=== PATIENT | male | born 1985 | race Caucasian/White ===

== ENCOUNTER 2016-04-23 20:04 | Inpatient (IN) | payer BC, OTHER ==
[~2016-04-23] VITALS: Ht 188 cm; Wt 99.8 kg
[2016-06-16 02:30] VITALS: BP 112/71
[2016-06-16] MEDS ORDERED: GABA600T2 PO (03:07)
[2016-06-16] MEDS ORDERED: MIRT30TA7 PO (03:07)
[2016-06-16] MEDS ORDERED: OLAN5TAB3 PO ×2 (03:07→06:10)
[2016-06-16] MEDS ORDERED: BUPR8TAB4 SL (03:07)
[2016-06-16] MEDS ORDERED: CLON0.2T PO (03:07)
[2016-06-16] MEDS ORDERED: MIRT15TA7 PO (03:07)
[2016-06-16] MEDS ORDERED: IBUPROFEN 400 MG TABLET PO PRN (03:45)
[2016-06-16] MEDS ORDERED: DICYCLOMINE HCL 20 MG TABLET PO PRN (03:45)
[2016-06-16] MEDS ORDERED: METHOCARBAMOL 750 MG TABLET PO PRN (03:45)
[2016-06-16] MEDS ORDERED: BUPRENORPHINE HCL 2 MG TAB.SUBL SL PRN ×2 (03:45→15:00)
[2016-06-16] MEDS ORDERED: HYDROXYZINE PAMOATE 25 MG CAPSULE PO PRN (03:45)
[2016-06-16] MEDS ORDERED: CLONIDINE HCL 0.1 MG TABLET PO PRN (03:45)
[2016-06-16] MEDS ORDERED: LORAZEPAM 2 MG/1 ML VIAL IM PRN (03:45)
[2016-06-16] MEDS ORDERED: MAG HYDROX/AL HYDROX/SIMETH 30 ML LIQUID UDC PO PRN (03:45)
[2016-06-16] MEDS ORDERED: ONDANSETRON ODT 4 MG TAB.RAPDIS SL PRN (03:45)
[2016-06-16] MEDS ORDERED: MAGNESIUM HYDROXIDE 30 ML LIQUID UDC PO PRN (03:45)
[2016-06-16] MEDS ORDERED: DIAZEPAM 5 MG TABLET PO PRN ×2 (03:45→15:00)
[2016-06-16] MEDS ORDERED: DIAZEPAM 10 MG TABLET PO PRN ×4 (03:45→15:00)
[2016-06-16] MEDS ORDERED: LOPERAMIDE HCL 2 MG CAPSULE PO PRN ×2 (03:45)
[2016-06-16] MEDS ORDERED: diphenhydrAMINE 50 MG CAPSULE PO PRN (03:45)
[2016-06-16] MEDS ORDERED: ACETAMINOPHEN 325 MG TABLET PO PRN (03:45)
[2016-06-16 04:00] LABS: *AMPHETAMINE, URINE POSITIVE (NEGATIVE); *BARBITURATE, URINE NEGATIVE (NEGATIVE); *CANNABINOID, URINE NEGATIVE (NEGATIVE); *COCCAINE, URINE NEGATIVE (NEGATIVE); *OPIATE, URINE POSITIVE (NEGATIVE); *PHENCYCLIDINE SCREEN,URINE NEGATIVE (NEGATIVE)
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
[2016-06-16 04:45] VITALS: BP 121/71
--- NOTE | 2016-06-16 04:55 | NUR ---
PRN Zofran administration Pt c/o nausea without vomiting. PRN Zofran administered.
[2016-06-16] MEDS ORDERED: ONDANSETRON ODT 4 MG TAB.RAPDIS ONE (05:00)
--- NOTE | 2016-06-16 05:25 | NUR ---
PRN Zofran reassessment PRN Zofran effective. Pt reports relief of nausea.
[2016-06-16 08:00] VITALS: BP 108/66
[2016-06-16 08:11] LABS: BASOPHILS % (AUTO) 0.4 % (0.0-2.0); EOSINOPHILS # (AUTO) 0.3 K/uL (0.0-0.7); HEMATOCRIT 37.7 % (36.7-47.1); HEMOGLOBIN 13.2 g/dL (12.5-16.3); LYMPHOCYTES # (AUTO) 1.6 K/uL (20.0-40.0); LYMPHOCYTES % (AUTO) 19.5 % (20.5-51.5); MEAN CORPUSCULAR HEMOGLOBIN 31.7 uug (23.8-33.4); MEAN CORPUSCULAR HGB CONC 35 g/dL (32.5-36.3); MEAN CORPUSCULAR VOLUME 90.3 fL (73.0-96.2); MONOCYTES # (AUTO) 0.5 K/uL (2.0-10.0); MONOCYTES % (AUTO) 5.5 % (0.0-11.0); NEUTROPHILS % (AUTO) 70.6 % (38.5-71.5); PLATELET COUNT (AUTO) 225 K/uL (152-348); RED BLOOD CELL COUNT(AUTO) 4.17 MIL/uL (4.06-5.63); RED CELL DISTRIBUTION WIDTH 13.6 % (12.1-16.2); WHITE BLOOD COUNT (AUTO) 8.4 K/uL (3.6-10.2)
[2016-06-16 08:15] LABS: ETHANOL < 3 MG/DL (0-0)
[2016-06-16 08:21] LABS: ALANINE AMINOTRANSFERASE 20 U/L (16-63); ALKALINE PHOSPHATASE 117 U/L (50-136); AMYLASE 27 U/L (25-115); ASPARTATE AMINOTRANSFERASE 27 U/L (15-37); BILIRUBIN,TOTAL 0.7 mg/dL (0.2-1.0); CALCIUM 8.5 mg/dL (8.5-10.1); CARBON DIOXIDE 32 mmol/L (21-32); CHLORIDE 105 mmol/L (98-107); GFR 88 mL/min (>60); GLUCOSE 108 mg/dL (74-106); LIPASE 63 U/L (73-393); MAGNESIUM 2.2 mg/dL (1.8-2.4); POTASSIUM 3.6 mmol/L (3.5-5.1); SODIUM SERUM 142 mmol/L (136-145); TOTAL PROTEIN, SERUM 6.6 g/dL (6.4-8.2); UREA NITROGEN, BLOOD 17 mg/dL (7-18)
[2016-06-16 08:25] LABS: HIV-1 p24 ANTIGEN NON REACTIVE (NONREACTIVE); HIV-1/2 ANTIBODY NON REACTIVE (NONREACTIVE)
[2016-06-16] MEDS ORDERED: MULTIVITAMINS,THERAPEUTIC TABLET PO SCH (09:00)
--- NOTE | 2016-06-16 09:30 | NUR ---
END OF SHIFT Report provided to day shift nurse. Pt is lying in bed resting. He is a 30 yo male admitted to [facility] at 0210 for Opiate and BZD Dependence. He is A&O x4 and ambulatory. NKA, full code, regular diet. Pt was mildly intoxicated on admission. PRN Zofran administered and effective. Last COWS 3 and CIWA 2. He drank 1200mL and slept for 2 hours.
--- NOTE | 2016-06-16 09:31 | NUR ---
START OF SHIFT] Received report from assembler 1st shift nurse. 30 year old male patient admitted on 06/16/16 for opiate, benzo and methamphetamine use. Pt is on PRN medications for now. Taper has not yet been initiated. Pt is A/O x4. PRN Zofran administered at night and effective.V/S remain WNL. Most recent COWS 3 and CIWA 2. Pt has multiple scabs and abrasions, and swelling on bilateral thighs due to IM injection. Pt presents with bilateral edema +1. Pt is resting in bed at this time, sleeping. RR even and unlabored. Safety precautions are in place. Will continue to monitor.
[2016-06-16] MEDS ORDERED: SERTRALINE HCL 100 MG TABLET PO SCH (11:45)
--- NOTE | 2016-06-16 12:07 | NUR ---
ASSUMED CARE assumed care from primary nurse, all pertinent information discussed. patient received awake, alert and oriented x4, will continue to monitor closely. safety measures in place.
[2016-06-16 13:34] VITALS: BP 112/68
--- NOTE | 2016-06-16 14:45 | NUR ---
MD COMMUNICATION Per Md patient to begin antibiotic therapy vancomycin IV for cellulitis of bilateral legs. Patients IV saline lock inserted by ER staff nurse to left inner wrist area, procedure well tolerated. Procedure explained prior to insertion. Saline lock noted patent and intact, no s/sx of infiltration. director staffing to administer IV ATB as ordered. As per Md orders patient to be started on a Valium and Subutex taper, as ordered, will monitor closely during shift. will continue to monitor vital signs and cow/ciwa scores. Patient was also placed on a 1:1 sitter for fall and safety precautions. will continue to monitor closely.
[2016-06-16] MEDS ORDERED: MIRALAX 17 GM POWD.PACK PO PRN (15:00)
[2016-06-16] MEDS ORDERED: IBUPROFEN 600 MG TABLET PO PRN (15:00)
--- NOTE | 2016-06-16 15:16 | NUR ---
Clinical Pharmacy Note: Vancomycin Dosing per Pharmacy Subjective: Vancomycin IV to start on this 30 yo male patient for cellulitis Objective: BUN 17/Scr 1.0 WBC 8.4 Temperature 98.3 wt 220 lb ht 6' 2'' Assessment/Plan: Will start vancomycin 1500mg IVPB Q9hr for a predicted vancomycin steady state trough level of 15 mcg/ml. Will draw a vancomycin trough level prior to the 4th dose of vancomycin (not ordered yet). Will monitor renal function and adjust vancomycin dose, if needed, should renal function change significantly. Will follow daily.
[2016-06-16 16:30] VITALS: BP 112/68
[2016-06-16] MEDS ORDERED: DIAZEPAM 10 MG TABLET PO SCH (17:00)
[2016-06-16] MEDS ORDERED: VANCOMYCIN IV 1,500 MG in IV DEXTROSE 5% 500 ML IV SCH (17:00)
--- NOTE | 2016-06-16 17:18 | NUR ---
AMA Patient stated that he wants to leave AMA. Patient educated about the risk and consequences of leaving AMA, patient verbalized understanding, but still requested to leave. Multiple staff members spoke with patient without any success. VS are WNL, patient denies any suicidal/homicidal ideations, skin intact, with redness to bilateral upper thighs, per MD cellulitis to BLE. Dr. law notified, and spoke with patient. Patient was given a list of community resources in case he is in need of help. all belonging returned to patient, home medications were also returned. Patient left the facility at 1718.
[2016-06-16] MEDS ORDERED: GABAPENTIN 300 MG CAPSULE PO SCH (21:00)
[2016-06-16] MEDS ORDERED: OLANZAPINE 5 MG TABLET PO SCH (21:00)
[2016-06-17 08:09] LABS: HEPATITIS B CORE AB, IgM Negative (Negative); HEPATITIS B SURFACE AG Negative (Negative)
[2016-06-17] MEDS ORDERED: TUBERCULIN,PURIF.PROT.DERIV. 5 TU/0.1 ML TEST ID ONE (09:00)
[2016-06-17] MEDS ORDERED: DIAZEPAM 10 MG TABLET PO SCH (09:00)
[2016-06-18] MEDS ORDERED: DIAZEPAM 10 MG TABLET PO SCH (09:00)
[2016-06-19] MEDS ORDERED: DIAZEPAM 10 MG TABLET PO SCH (09:00)
[2016-06-19] MEDS ORDERED: DIAZEPAM 5 MG TABLET PO SCH (09:00)
[2016-06-20] MEDS ORDERED: DIAZEPAM 5 MG TABLET PO SCH (09:00)
[2016-06-21] MEDS ORDERED: DIAZEPAM 5 MG TABLET PO SCH (09:00)
[2016-06-22] MEDS ORDERED: DIAZEPAM 5 MG TABLET PO SCH (09:00)
== END 2016-06-16 15:18 | disposition left against medical advice (07) | DRG 894 ==
LOC: SRC 06-16 01:23
PROVIDERS: ADMIT Internal Medicine; ATTEND Internal Medicine
PROC: HZ2ZZZZ Detoxification Services for Substance Abuse Treatment (ICD-10-PCS; principal; 2016-06-16)
DX: F11.229 Opioid dependence with intoxication, unspecified (principal); L03.115 Cellulitis of right lower limb; F13.229 Sedative, hypnotic or anxiolytic dependence with intoxication, unspecified; F40.01 Agoraphobia with panic disorder; F17.210 Nicotine dependence, cigarettes, uncomplicated; Z59.0 Homelessness; S71.131S Puncture wound without foreign body, right thigh, sequela; X78.8XXS Intentional self-harm by other sharp object, sequela; Z82.49 Family history of ischemic heart disease and other diseases of the circulatory system; Z81.8 Family history of other mental and behavioral disorders; Z59.1 Inadequate housing; F15.10 Other stimulant abuse, uncomplicated; F32.9 Major depressive disorder, single episode, unspecified; R26.81 Unsteadiness on feet
CPT/HCPCS: 36415; 80307; 80324; 80346; 80361; 83690; 83735; 84443; 85025; 86705; 87340; 87806; G6040-TC; J3370; J7060; Q0162

== ENCOUNTER 2016-07-09 21:16 | Inpatient (IN) | payer BC, OTHER ==
[~2016-07-09] VITALS: Ht 188 cm; Wt 97.5 kg
--- NOTE | 2016-07-10 08:00 | NUR ---
PRE-ADMISSION Pre admission completed at intake office at 0730 patient was discharged from [facility] at approximately 0700, patient arrived to [facility] on 07/10/2016 and was taken to [facility] ER at 0103, as per ER nurse report patient had with him an empty bottle of "Xanax" and "empty syringes" As per nursing ER report patient refused Narcan. Patient was discharged from ER and taken to [facility], upon assessing patient, patient noted alert and oriented x4, verbally responsive. Patients bp: 124/73 heart rate: 85, t: 97.8 r: 16 o2 sat: 99% room air. Patient denies any pain/discomfort. Patient reports he is 6 feet 2 inches and weighs 215 lbs. Denies any allergies to food or drugs. Patient denies any history of seizures.
[2016-07-10] MEDS ORDERED: IBUP-1482 PO (08:30)
[2016-07-10] MEDS ORDERED: OLAN5TAB30 PO (08:30)
[2016-07-10] MEDS ORDERED: SERT100T12 PO (08:30)
[2016-07-10] MEDS ORDERED: ONDA-25 PO (08:30)
[2016-07-10] MEDS ORDERED: CLON0.1T PO (08:30)
[2016-07-10] MEDS ORDERED: HYDR50CA5 PO (08:30)
[2016-07-10] MEDS ORDERED: METH-406 PO (08:30)
[2016-07-10] MEDS ORDERED: GABA600T2 PO (08:30)
[2016-07-10] MEDS ORDERED: MIRT45TA5 PO (08:30)
[2016-07-10 08:42] VITALS: BP 124/73
[2016-07-10] MEDS ORDERED: MIRALAX 17 GM POWD.PACK PO PRN (09:00)
[2016-07-10] MEDS ORDERED: ACETAMINOPHEN 325 MG TABLET PO PRN (09:00)
[2016-07-10] MEDS ORDERED: HYDROXYZINE PAMOATE 25 MG CAPSULE PO PRN (09:00)
[2016-07-10] MEDS ORDERED: LOPERAMIDE HCL 2 MG CAPSULE PO PRN ×2 (09:00)
[2016-07-10] MEDS ORDERED: MAG HYDROX/AL HYDROX/SIMETH 30 ML LIQUID UDC PO PRN (09:00)
[2016-07-10] MEDS ORDERED: BUPRENORPHINE HCL 2 MG TAB.SUBL SL PRN (09:00)
[2016-07-10] MEDS ORDERED: METHOCARBAMOL 750 MG TABLET PO PRN (09:00)
[2016-07-10] MEDS ORDERED: diphenhydrAMINE 50 MG CAPSULE PO PRN (09:00)
[2016-07-10] MEDS ORDERED: DICYCLOMINE HCL 20 MG TABLET PO PRN (09:00)
[2016-07-10] MEDS: MULTIVITAMINS,THERAPEUTIC TABLET PO SCH (09:00)
[2016-07-10] MEDS ORDERED: IBUPROFEN 600 MG TABLET PO PRN (09:00)
[2016-07-10] MEDS ORDERED: ONDANSETRON ODT 4 MG TAB.RAPDIS SL PRN (09:00)
[2016-07-10] MEDS ORDERED: ONDANSETRON 4 MG/2 ML VIAL IM PRN (09:00)
[2016-07-10] MEDS ORDERED: MAGNESIUM HYDROXIDE 30 ML LIQUID UDC PO PRN (09:00)
[2016-07-10] MEDS ORDERED: CLONIDINE HCL 0.1 MG TABLET PO PRN (09:00)
--- NOTE | 2016-07-10 10:10 | NUR ---
ADMISSION Admitted a 30 year old male from [place], [facility] patient reports feeling very sleepy. Patients vitals were obtained at intake office and were WNL. Patient with NKA. Brought home medications, all medications were input into [facility]. Patient reports he is currently homeless but rents out a "place" from "[employer]" Patient reports substance use of: 1. heroin- began using at age 17, reports for the past two years on/off has been using 2-5 grams of heroin IM, daily reports he last used 07/09/2016 at 2000 1gram. 2. Xanax- began using at the age of 17, reports for the past two years on/off has been using 20-30mg daily, reports he last used 07/09/2016 at 0800 6mg. Patient reports he has been to 50 treatment centers in the past but cannot recall them all, reports most recently has been to: 1. [facility] 1.5 months ago, left AMA after 12 hours of being here. 2. [facility] in [place] for one week 2 months ago, 3. [facility] in [facility] for 17 days 3 months ago, 4. [facility] in [place] for one week 3 months ago. Patient reports he has been diagnosed with panic d/o at the age of 27, anxiety and depression Dx: at tech age of 13. reports his primary care physician is Dr. Penny located in [facility]. denies any history of seizures. denies any family history of substance abuse. Patient reports he was hospitalized 3 weeks ago for heroin overdose at [facility]. Patient currently awake, and alert and oriented x4, pupils are equal and reactive to light, 2mm. Patients abdomen is soft and non distended. no N/V/D noted. Patients lungs clear upon auscultation. patient body assessment completed skin is intact, no bruising discoloration or breakdown noted. Patients body search completed by male intake on contraband found. Patient currently c/o chill, mild heedfulness and mild anxiety with cow score of: 3 and ciwa score of: 3. Dr. Peace notified of admission, report given to MD, per Dr. Peace he will assess patient. Psychiatrist notified of new admission. patient educated regarding call light use with good verbal understanding. oriented to unit. safety measures in place. call light kept with in reach, will continue to monitor.
[2016-07-10 11:15] LABS: BASOPHILS % (AUTO) 0.5 % (0.0-2.0); EOSINOPHILS # (AUTO) 0.4 K/uL (0.0-0.7); EOSINOPHILS % (AUTO) 5.7 % (0.0-7.0); HEMATOCRIT 41.5 % (40-50); HEMOGLOBIN 14.2 G/DL (14.0-18.0); LYMPHOCYTES # (AUTO) 1.8 K/UL (0.8-4.8); LYMPHOCYTES % (AUTO) 26.6 % (20.5-51.5); MEAN CORPUSCULAR HEMOGLOBIN 30.6 UUG (27.0-31.0); MEAN CORPUSCULAR HGB CONC 34 g/dL (32.0-37.0); MEAN CORPUSCULAR VOLUME 89.7 FL (82.0-92.0); MONOCYTES # (AUTO) 0.3 K/UL (0.1-1.30); MONOCYTES % (AUTO) 4.8 % (0.0-11.0); NEUTROPHILS # (AUTO) 4.3 K/UL (1.8-8.9); NEUTROPHILS % (AUTO) 62.4 % (38.5-71.5); PLATELET COUNT (AUTO) 204 K/UL (150-450); RED BLOOD CELL COUNT(AUTO) 4.62 MIL/UL (4.7-6.1); RED CELL DISTRIBUTION WIDTH 13.8 % (11.5-14.5); WHITE BLOOD COUNT (AUTO) 6.8 K/UL (4.0-11.2)
[2016-07-10 11:21] LABS: ETHANOL < 3 MG/DL (0-0)
[2016-07-10 11:40] LABS: ALANINE AMINOTRANSFERASE 25 U/L (16-63); ALBUMIN 3.4 g/dL (3.4-5.0); ALKALINE PHOSPHATASE 140 U/L (50-136); ASPARTATE AMINOTRANSFERASE 29 U/L (15-37); BILIRUBIN,TOTAL 0.3 mg/dL (0.2-1.0); CALCIUM 8.6 mg/dL (8.5-10.1); CARBON DIOXIDE 31 mmol/L (21-32); CHLORIDE 106 mmol/L (98-107); CREATININE 0.9 mg/dL (0.6-1.3); GFR 99 mL/min (>60); GLUCOSE 120 mg/dL (74-106); MAGNESIUM 2.2 mg/dL (1.8-2.4); POTASSIUM 4.1 mmol/L (3.5-5.1); SODIUM SERUM 143 mmol/L (136-145); TOTAL PROTEIN, SERUM 6.8 g/dL (6.4-8.2); UREA NITROGEN, BLOOD 12 mg/dL (7-18)
[2016-07-10 11:46] LABS: THYROID STIMULATING HORMONE 1.107 mIU/mL (0.358-3.740)
[2016-07-10 12:01] LABS: HIV-1 p24 ANTIGEN NON REACTIVE (NONREACTIVE); HIV-1/2 ANTIBODY NON REACTIVE (NONREACTIVE)
[2016-07-10] MEDS ORDERED: LORAZEPAM 2 MG/1 ML VIAL IM PRN (12:30)
[2016-07-10] MEDS ORDERED: DIAZEPAM 5 MG TABLET PO PRN (12:30)
[2016-07-10] MEDS ORDERED: BACLOFEN 20 MG TABLET PO PRN (12:30)
[2016-07-10] MEDS ORDERED: DIAZEPAM 10 MG TABLET PO PRN ×2 (12:30)
--- NOTE | 2016-07-10 12:47 | NUR ---
UDS Patients admitting urine drug screen collected on 07/10/2016 at 0830 results under ER record for patient, results were printed and placed in chart. MD notified of results. As per results patient positive for opiate/benzodiazepines and barbiturates. Per patient reported that "4-5 days ago" he did not have any Xanax and he took "two-30mg phenobarbital tablets" MD notified.
[2016-07-10] MEDS: DIAZEPAM 10 MG TABLET PO SCH ×3 (13:12→21:19)
[2016-07-10 13:38] VITALS: BP 103/63
[2016-07-10] MEDS: GABAPENTIN 300 MG CAPSULE PO SCH ×2 (14:14→21:19)
[2016-07-10 16:55] VITALS: BP 112/73
--- NOTE | 2016-07-10 18:57 | NUR ---
END OF SHIFT Patient alert and oriented x4, vital signs stable during shift. Patient was started on a modified 5 day Valium taper and 5 day Subutex taper (to start tomorrow) as per Dr. law and continues under close observation for s/sx of withdrawal. 1300 assessment patient presented with: heart rate of 86, mild head fullness, barely sweating and moderate anxiety with cow score of: 4 and ciwa score of: 7. 1700 assessment patient presented with: c/o chills, anxiety and barely sweating with cow score of: 3, and ciwa score of: 5. Patient encouraged adequate PO fluid intake as tolerated. Encouraged to attend group therapies/sessions to learn new coping skills to prevent relapse, denies any SI/HI. Safety measures in place. call light kept with in reach. all needs met and rendered. patient endorsed to cage shift manager nurse, all pertinent information discussed.
[2016-07-10 20:00] VITALS: BP 119/76
--- NOTE | 2016-07-10 20:02 | NUR ---
START OF SHIFT NOTE Pt is a 30 y/o male admitted for Heroin and Xanax dependence and use. Pt has NKA but reported a PMH of panic disorder, anxiety, and depression. Per day shift nurse pt was placed on a 5 day Valium taper and a 5 day Subutex taper(Subutex taper is scheduled to start tomorrow) Pt is tolerating medications well with no s/e or a/r reported. Pt didn't receive any PRNS during the day shift. Last COW: 3 and CIWA: 5 (1600). At this time pt is in his room eating some cereal. Pt stated " I'm doing alright." Pt denies any pain/discomfort at this time. Pt is encouraged to notify staff of any changes in condition or of any concerns. Pt verbalized an understanding. All safety measures in place; side rails up x 2, bed locked and in low position, and call light with reach. Will continue to monitor.
--- NOTE | 2016-07-11 | NUR ---
DANNA, ISAAC, AND VITALS REFUSED Pt refused to be assessed and have vitals taken at this time. Pt was encouraged x 3 with risks and benefits explained, but the pt still refused. Will continue to monitor. Addendum: 07/11/16 at 0628 by CRISTOBAL KRAMER LVN Amended: Links added.
[2016-07-11 04:00] VITALS: BP 113/68
--- NOTE | 2016-07-11 07:50 | NUR ---
END OF SHIFT NOTE Pt is a 30 y/o male admitted for Heroin and Xanax dependence and use. Pt has NKA but reported a PMH of panic disorder, anxiety, and depression. Pt was continues on a 5 day Valium taper and a 5 day Subutex taper(Subutex taper is scheduled to start today) Pt is tolerating medications well with no s/e or a/r reported. Pt didn't receive any PRNS during the shift. Last COW: 1 and CIWA: 0 (0400). Pt slept for a total of 10 hours. All safety measures in place; side rails up x 2, bed locked and in low position, and call light with reach. Endorsed to the oncoming nurse.
--- NOTE | 2016-07-11 07:56 | NUR ---
BEGINNING OF SHIFT Patient endorsement report received from shift commander nurse, all pertinent information discussed. patient with admitting Dx: Opiate/BZO dependence Patient admitted on the: 07/10/2016. PMH: Anxiety, depression, and panic d/o. Patient currently on 5 day Valium taper and 5 day Subutex taper, patient is currently on day 2 of Valium taper and day 1 of Subutex taper well tolerated, no ASE noted, and is currently under close observation. As per shift commander patient slept for 10 hours, received no PRNs during shift commander. Patient with last ciwa score of: 0 and last cow score of: 1. Patient received in bed with eyes closed, respirations even and unlabored, responsive to verbal stimuli, educated patient regarding plan of care for the day and medication regimen with good verbal understanding. safety measures in place. will continue to monitor.
[2016-07-11 08:05] VITALS: BP 135/82
[2016-07-11] MEDS ORDERED: DIAZEPAM 10 MG TABLET PO SCH ×2 (09:00→15:00)
[2016-07-11] MEDS ORDERED: BUPRENORPHINE HCL 2 MG TAB.SUBL SL SCH (09:00)
[2016-07-11] MEDS ORDERED: TUBERCULIN,PURIF.PROT.DERIV. 5 TU/0.1 ML TEST ID ONE (09:00)
[2016-07-11] MEDS: MULTIVITAMINS,THERAPEUTIC TABLET PO SCH (09:07)
[2016-07-11] MEDS: GABAPENTIN 300 MG CAPSULE PO SCH ×2 (09:07→15:10)
[2016-07-11] MEDS ORDERED: DIAZEPAM 5 MG TABLET PO PRN (11:30)
[2016-07-11] MEDS ORDERED: DIAZEPAM 10 MG TABLET PO ONE (11:30)
[2016-07-11] MEDS ORDERED: BUPRENORPHINE HCL 2 MG TAB.SUBL SL PRN (11:30)
[2016-07-11] MEDS ORDERED: DIAZEPAM 10 MG TABLET PO PRN ×2 (11:30)
[2016-07-11] MEDS ORDERED: BUPRENORPHINE HCL 2 MG TAB.SUBL SL ONE (12:00)
[2016-07-11 12:15] VITALS: BP 124/79
[2016-07-11 16:30] VITALS: BP 122/75
--- NOTE | 2016-07-11 17:33 | NUR ---
AMA Patient stated that he wants to leave AMA. Patient educated regarding the risk and consequences of leaving AMA, patient verbalized understanding but still requested to leave. multiple staff member spoke with patient without any success. VS WNL, patient denies any SI/HI. skin is intact. Dr. Peace notified. Patient was given a list of community resources in case he is in need of help. all belongings including home medications were returned to patient. Patient left the facility at 1722.
[2016-07-11] MEDS ORDERED: OLANZAPINE 5 MG TABLET PO SCH (21:00)
[2016-07-12] MEDS ORDERED: SERTRALINE HCL 100 MG TABLET PO SCH (09:00)
[2016-07-12] MEDS ORDERED: BUPRENORPHINE HCL 2 MG TAB.SUBL SL SCH ×2 (09:00)
[2016-07-12] MEDS ORDERED: DIAZEPAM 10 MG TABLET PO SCH ×2 (09:00)
[2016-07-13 05:19] LABS: HCV AB <0.1 s/co ratio (0.0-0.9); HEPATITIS B CORE AB, IgM Negative (Negative); HEPATITIS B SURFACE AG Negative (Negative)
[2016-07-13] MEDS ORDERED: DIAZEPAM 5 MG TABLET PO SCH (09:00)
[2016-07-13] MEDS ORDERED: BUPRENORPHINE HCL 2 MG TAB.SUBL SL SCH ×3 (09:00→15:00)
[2016-07-13] MEDS ORDERED: DIAZEPAM 10 MG TABLET PO SCH (09:00)
[2016-07-14] MEDS ORDERED: BUPRENORPHINE HCL 2 MG TAB.SUBL SL SCH ×3 (09:00→15:00)
[2016-07-14] MEDS ORDERED: DIAZEPAM 5 MG TABLET PO SCH ×2 (09:00)
[2016-07-15] MEDS ORDERED: BUPRENORPHINE HCL 2 MG TAB.SUBL SL SCH ×2 (09:00)
[2016-07-15] MEDS ORDERED: DIAZEPAM 5 MG TABLET PO SCH ×2 (09:00)
[2016-07-16] MEDS ORDERED: DIAZEPAM 5 MG TABLET PO SCH (09:00)
[2016-07-16] MEDS ORDERED: BUPRENORPHINE HCL 2 MG TAB.SUBL SL SCH (09:00)
== END 2016-07-11 17:22 | disposition left against medical advice (07) | DRG 894 ==
LOC: SRC 07-10 00:25
PROVIDERS: ADMIT Internal Medicine; ATTEND Internal Medicine
PROC: HZ2ZZZZ Detoxification Services for Substance Abuse Treatment (ICD-10-PCS; principal; 2016-07-10)
DX: F13.239 Sedative, hypnotic or anxiolytic dependence with withdrawal, unspecified (principal); F11.23 Opioid dependence with withdrawal; Z82.49 Family history of ischemic heart disease and other diseases of the circulatory system; Z81.8 Family history of other mental and behavioral disorders; Z59.0 Homelessness; F40.01 Agoraphobia with panic disorder; F41.1 Generalized anxiety disorder; F32.9 Major depressive disorder, single episode, unspecified; F17.210 Nicotine dependence, cigarettes, uncomplicated; F15.10 Other stimulant abuse, uncomplicated
CPT/HCPCS: 36415; 80345; 80346; 80361; 83735; 84443; 85025; 86592; 86705; 86803; 87340; 87806; G6040-TC

== ENCOUNTER 2016-07-10 00:40 | Emergency (ER) | payer BC, OTHER ==
[~2016-07-10] VITALS: Ht 185.4 cm; Wt 99.8 kg
[2016-07-10] MEDS ORDERED: IV NORMAL SALINE 1000 ML BAG IV ONE (01:00)
--- NOTE | 2016-07-10 01:03 | NUR ---
PT RHONDA RN FROM [facility] WITH DRUG OVERDOSE.PT FOUND WITH EMPTY BOTTLE OF XANAX AND SYRINGES WITH HEROIN.PT WILL ANSWER SOME QUESTIONS BUT DOES NOT WANT ANY NARCAN.DENIES PAIN... pt is oriented x 3-4, able to answer questions with prompting... No resp distress noted or reported upon assessment.... md at bedside...
[2016-07-10 01:19] LABS: BASOPHILS # (AUTO) 0.1 K/uL (0.0-8.0); BASOPHILS % (AUTO) 0.8 % (0.0-2.0); EOSINOPHILS # (AUTO) 0.4 K/uL (0.0-0.7); EOSINOPHILS % (AUTO) 6.2 % (0.0-7.0); HEMATOCRIT 40.4 % (40-50); HEMOGLOBIN 14.1 G/DL (14.0-18.0); LYMPHOCYTES # (AUTO) 2.5 K/UL (0.8-4.8); LYMPHOCYTES % (AUTO) 34.8 % (20.5-51.5); MEAN CORPUSCULAR HEMOGLOBIN 31.5 UUG (27.0-31.0); MEAN CORPUSCULAR HGB CONC 35 g/dL (32.0-37.0); MEAN CORPUSCULAR VOLUME 90.3 FL (82.0-92.0); MONOCYTES # (AUTO) 0.4 K/UL (0.1-1.30); MONOCYTES % (AUTO) 5.4 % (0.0-11.0); NEUTROPHILS # (AUTO) 3.8 K/UL (1.8-8.9); NEUTROPHILS % (AUTO) 52.8 % (38.5-71.5); PLATELET COUNT (AUTO) 223 K/UL (150-450); RED BLOOD CELL COUNT(AUTO) 4.48 MIL/UL (4.7-6.1); RED CELL DISTRIBUTION WIDTH 13.5 % (11.5-14.5); WHITE BLOOD COUNT (AUTO) 7.3 K/UL (4.0-11.2)
[2016-07-10 01:25] LABS: ETHANOL < 3 MG/DL (0-0)
[2016-07-10 01:28] LABS: CALCIUM 8.5 mg/dL (8.5-10.1); CARBON DIOXIDE 29 mmol/L (21-32); CHLORIDE 106 mmol/L (98-107); GFR 88 mL/min (>60); GLUCOSE 111 mg/dL (74-106); POTASSIUM 4.1 mmol/L (3.5-5.1); SODIUM SERUM 143 mmol/L (136-145); UREA NITROGEN, BLOOD 14 mg/dL (7-18)
[2016-07-10 01:34] LABS: ALANINE AMINOTRANSFERASE 25 U/L (16-63); ALBUMIN 3.5 g/dL (3.4-5.0); ALKALINE PHOSPHATASE 150 U/L (50-136); ASPARTATE AMINOTRANSFERASE 28 U/L (15-37); BILIRUBIN,DIRECT < 0.1 mg/dL (0.0-0.2); BILIRUBIN,TOTAL 0.2 mg/dL (0.2-1.0)
--- NOTE | 2016-07-10 07:23 | NUR ---
Patient discharged to home in stable conditon. Written and verbal after care instructions given. Patient verbalizes understanding of instructions. Rep from [facility] here to picking machine operator pt, pt walked out of ER unassisted with [employer].In tech at side...
[2016-07-10] MEDS ORDERED: GABA600T2 PO (08:30)
[2016-07-10] MEDS ORDERED: METH-406 PO (08:30)
[2016-07-10] MEDS ORDERED: MIRT45TA5 PO (08:30)
[2016-07-10] MEDS ORDERED: SERT100T12 PO (08:30)
[2016-07-10] MEDS ORDERED: HYDR50CA5 PO (08:30)
[2016-07-10] MEDS ORDERED: OLAN5TAB30 PO (08:30)
[2016-07-10] MEDS ORDERED: IBUP-1482 PO (08:30)
[2016-07-10] MEDS ORDERED: ONDA-25 PO (08:30)
[2016-07-10] MEDS ORDERED: CLON0.1T PO (08:30)
[2016-07-10 09:02] LABS: *AMPHETAMINE, URINE NEGATIVE (NEGATIVE); *BARBITURATE, URINE POSITIVE (NEGATIVE); *CANNABINOID, URINE NEGATIVE (NEGATIVE); *COCCAINE, URINE NEGATIVE (NEGATIVE); *OPIATE, URINE POSITIVE (NEGATIVE); *PHENCYCLIDINE SCREEN,URINE NEGATIVE (NEGATIVE)
[2016-07-10] MEDS ORDERED: OLANZAPINE 5 MG TABLET PO SCH (21:00)
[2016-07-10] MEDS ORDERED: SERTRALINE HCL 100 MG TABLET PO SCH (21:00)
== END 2016-07-10 07:25 | disposition home or self-care (01) ==
LOC: ER 00:45
DX: T40.1X1A Poisoning by heroin, accidental (unintentional), initial encounter (principal); Y92.89 Other specified places as the place of occurrence of the external cause
CPT/HCPCS: 36415; 80307; 85025; A4663; G6040-TC; J7030